=== PATIENT | female | born 1970 | race Caucasian/White ===

== ENCOUNTER 2017-07-23 18:43 | Emergency (ER) | payer SELFPAY ==
[2017-07-23] MEDS ORDERED: LABETALOL 20 MG/4ML SYRINGE IV ONE (18:51)
[2017-07-23] MEDS ORDERED: AMLODIPINE 5 MG TAB ONE (19:28)
[2017-07-23] MEDS ORDERED: LORazepam 2 MG/ML VIAL ONE (19:28)
[2017-07-23 19:33] LABS: Absolute Lymphocytes (CBC) 2.3 K/uL (0.7-4.9); Absolute Monocytes 0.7 K/uL (0.1-1.3); Absolute Neutrophil 6.1 K/uL (1.8-8.0); Basophils % 1.1 % (0-1.3); Hematocrit 36.9 % (36.0-45.0); Lymphocytes % 24.2 % (15.3-44.8); MCH 28.4 pg (27.0-35.0); MPV 8.5 fL (7.6-11.3); Monocytes % 7.4 % (3.3-12.3)
[2017-07-23 19:40] LABS: Protime INR 0.98
--- NOTE | 2017-07-23 19:41 | RAD REPORT ---
EXAM DESCRIPTION: CT - Head Brain Wo Cont - 07/23/2017 7:28 pm CLINICAL HISTORY: Hypertension, headache COMPARISON: None. TECHNIQUE: All CT scans are performed using dose optimization technique as appropriate and may inclu de automated exposure control or mA/KV adjustment according to patient size. FINDINGS: No intracranial hemorrhage, hydrocephalus or extra-axial fluid collection.No areas of brai n edema or evidence of midline shift. The paranasal sinuses and mastoids are clear. The calvarium is intact. IMPRESSION: No acute intracranial abnormality.
--- NOTE | 2017-07-23 19:42 | RAD REPORT ---
EXAM DESCRIPTION: RAD - Chest Single View - 07/23/2017 7:34 pm CLINICAL HISTORY: Hypertension, chest pain COMPARISON: None. FINDINGS: Portable technique limits examination quality. The lungs are grossly clear. The heart is normal in size. No displaced fractures. IMPRESSION: No acute intrathoracic process suspected.
[2017-07-23 19:50] LABS: Potassium 4.1 mEq/L (3.6-5.0)
[2017-07-23 19:56] LABS: Albumin 3.7 g/dL (3.2-5.5); Bilirubin Direct 0.1 mg/dL (0-0.2); Bilirubin Total 0.6 mg/dL (0.3-1.2); Magnesium 2.1 mg/dL (1.8-2.5); Protein, Total 7.5 g/dL (6.0-8.3)
[2017-07-23 19:57] LABS: CKMB Creatine Kinase MB 0.8 ng/ml (0.3-4.0)
[2017-07-23 20:07] LABS: Urine Blood TRACE (NEG); Urine Glucose NEGATIVE (NEG); Urine Protein NEGATIVE (NEG)
--- NOTE | 2017-07-23 20:49 | EDPHYS ---
Physician Documentation [facility] Name: Nayana Manning Age: 47 yrs Sex: Female : 1970 Arrival Date: 07/23/2017 Time: 18:35 Bed 18 Private MD: ED Physician Matt Dahl HPI: 07/23 19:23 This 47 yrs old Female presents to ER via EMS with complaints of Blood helene Pressure Problem. 19:23 high blood pressure and headache, at [facility]. Onset: The symptoms/episode helene began/occurred today. Severity of symptoms: At their worst the symptoms were mild in the emergency department the symptoms are unchanged. The patient has experienced similar episodes in the past, several times. 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 - Social history:: Smoking status: Patient/guardian denies using tobacco. ROS: 19:24 Constitutional: Negative for fever, chills, and weight loss, Eyes: Negative for injury, helene pain, redness, and discharge, ENT: Negative for injury, pain, and discharge, Neck: Negative for injury, pain, and swelling, Cardiovascular: Negative for chest pain, palpitations, and edema, Respiratory: Negative for shortness of breath, cough, wheezing, and pleuritic chest pain, Abdomen/GI: Negative for abdominal pain, nausea, vomiting, diarrhea, and constipation, Back: Negative for injury and pain, : Negative for injury, bleeding, discharge, and swelling, MS/Extremity: Negative for injury and deformity, Skin: Negative for injury, rash, and discoloration, Psych: Negative for depression, anxiety, suicide ideation, homicidal ideation, and hallucinations, Allergy/Immunology: Negative for hives, rash, and allergies, Endocrine: Negative for neck swelling, polydipsia, polyuria, polyphagia, and marked weight changes, Hematologic/Lymphatic: Negative for swollen nodes, abnormal bleeding, and unusual bruising. 19:24 Neuro: Positive for headache. Exam: 19:24 Constitutional: This is a well developed, well nourished patient who is awake, alert, helene and in no acute distress. Head/Face: Normocephalic, atraumatic. Eyes: Pupils equal round and reactive to light, extra-ocular motions intact. Lids and lashes normal. Conjunctiva and sclera are non-icteric and not injected. Cornea within normal limits. Periorbital areas with no swelling, redness, or edema. ENT: Nares patent. No nasal discharge, no septal abnormalities noted. Tympanic membranes are normal and external auditory canals are clear. Oropharynx with no redness, swelling, or masses, exudates, or evidence of obstruction, uvula midline. Mucous membranes moist. Neck: Trachea midline, no thyromegaly or masses palpated, and no cervical lymphadenopathy. Supple, full range of motion without nuchal rigidity, or vertebral point tenderness. No Meningismus. Chest/axilla: Normal chest wall appearance and motion. Nontender with no deformity. No lesions are appreciated. Cardiovascular: Regular rate and rhythm with a normal S1 and S2. No gallops, murmurs, or rubs. Normal PMI, no JVD. No pulse deficits. Respiratory: Lungs have equal breath sounds bilaterally, clear to auscultation and percussion. No rales, rhonchi or wheezes noted. No increased work of breathing, no retractions or nasal flaring. Abdomen/GI: Soft, non-tender, with normal bowel sounds. No distension or tympany. No guarding or rebound. No evidence of tenderness throughout. Back: No spinal tenderness. No costovertebral tenderness. Full range of motion. Female : Normal external genitalia. Skin: Warm, dry with normal turgor. Normal color with no rashes, no lesions, and no evidence of cellulitis. MS/ Extremity: Pulses equal, no cyanosis. Neurovascular intact. Full, normal range of motion. Neuro: Awake and alert, GCS 15, oriented to person, place, time, and situation. Cranial nerves II-XII grossly intact. Motor strength 5/5 in all extremities. Sensory grossly intact. Cerebellar exam normal. Normal gait. Psych: Awake, alert, with orientation to person, place and time. Behavior, mood, and affect are within normal limits. 19:24 Neck: ROM/movement: Meningeal signs: are not present, Kernig's sign is negative, Brudzinski's sign is negative. Vital Signs: 18:38 BP 195 / 100; Pulse 78; Resp 15; Temp 97.7(O); Pulse Ox 100% on R/A; Weight 72.57 kg; ch Height 5 ft. 6 in. (167.64 cm); Pain 4/10; 19:41 BP 169 / 102; Pulse 76; Resp 18; Pulse Ox 99% on R/A; ea 20:30 BP 136 / 92; Pulse 68; Resp 18; Pulse Ox 99% on R/A; ea 21:56 BP 122 / 69; Pulse 79; Resp 18; Temp 98; Pulse Ox 99% on R/A; ea 18:38 Body Mass Index 25.82 (72.57 kg, 167.64 cm) ch 18:38 at its worse pain is a 6 ch Procedures: 19:59 Peripheral line: by aseptic technique a peripheral line was placed in the right [facility] external jugular vein. MDM: 19:12 Patient medically screened. [facility] 19:25 Data reviewed: vital signs, nurses notes, lab test result(s), EKG, radiologic studies, [facility] CT scan, plain films. 07/23 18:51 Order name: Basic Metabolic Panel 07/23 18:51 Order name: BNP 07/23 18:51 Order name: CBC with Diff 07/23 18:51 Order name: Ckmb 07/23 18:51 Order name: CPK 07/23 18:51 Order name: LFT's; Complete Time: 20:44 07/23 18:51 Order name: Magnesium; Complete Time: 20:44 07/23 18:51 Order name: PT-INR; Complete Time: 20:44 07/23 18:51 Order name: Ptt, Activated; Complete Time: 20:44 07/23 18:51 Order name: Troponin (emerg Dept Use Only); Complete Time: 20:44 07/23 18:51 Order name: Lipase; Complete Time: 20:44 07/23 18:52 Order name: Basic Metabolic Panel; Complete Time: 20:44 EDMS 07/23 18:52 Order name: BNP B-Type Natriuretic Peptide; Complete Time: 20:44 EDMS 07/23 18:51 Order name: XRAY Chest (1 view); Complete Time: 20:44 07/23 18:51 Order name: EKG; Complete Time: 18:52 07/23 18:51 Order name: Cardiac monitoring; Complete Time: 21:05 07/23 18:51 Order name: EKG - Nurse/Tech; Complete Time: 21:05 07/23 18:51 Order name: CT Head Brain wo Cont; Complete Time: 20:44 iw 07/23 18:52 Order name: CBC with Automated Diff; Complete Time: 20:44 EDMS 07/23 18:52 Order name: CKMB Creatine Kinase MB; Complete Time: 20:44 EDMS 07/23 18:52 Order name: Creatine Phosphokinase; Complete Time: 20:44 EDMS 07/23 19:37 Order name: Urine Dipstick--Ancillary (enter results); Complete Time: 20:44 [facility] 07/23 19:37 Order name: Urine --Ancillary (enter results); Complete Time: 20:44 [facility] 07/23 18:51 Order name: IV Saline Lock; Complete Time: 21:05 07/23 18:51 Order name: Labs collected and sent; Complete Time: 21:05 07/23 18:51 Order name: O2 Per Protocol; Complete Time: 21:05 07/23 18:51 Order name: O2 Sat Monitoring; Complete Time: 21:05 07/23 18:51 Order name: Urine Dipstick-Ancillary (obtain specimen); Complete Time: 21:05 iw Administered Medications: 19:50 Drug: Labetalol 20 mg {Note: Left EJ.} Route: IVP; Infused Over: 2 mins; Site: Other; ea 21:11 Follow up: Response: No adverse reaction; Marked relief of symptoms; Blood pressure is ea lowered 19:50 Drug: Ativan 1 mg {Note: left EJ.} Route: IVP; Site: Other; ea 21:11 Follow up: Response: No adverse reaction ea 19:50 Drug: Norvasc 10 mg Route: PO; ea 21:10 Follow up: Response: No adverse reaction ea 20:55 Drug: Rocephin - (cefTRIAXone) 1 grams {Note: left EJ.} Route: IVPB; Infused Over: 30 ea mins; Site: Other; 21:52 Follow up: Response: No adverse reaction; IV Status: Completed infusion ea 21:05 Drug: Trandate 100 mg Route: PO; ea 21:11 Follow up: Response: No adverse reaction; Marked relief of symptoms; Blood pressure is ea lowered Disposition: 07/23/17 20:48 Discharged to Home. Impression: Essential (primary) hypertension, Urinary tract infection, site not specified. - Condition is Stable. - Discharge Instructions: Hypertension, Urinary Tract Infection, Urinary Tract Infection, [id number], Hypertension, Yqzf-[id number], How to Take Your Blood Pressure, [id number], Aspirin and Your Heart, Managing Your High Blood Pressure. - Prescriptions for Norvasc 5 mg Oral Tablet - take 1 tablet by ORAL route once daily; 20 tablet. Trandate 200 mg Oral Tablet - take 2 tablet by ORAL route every 12 hours; 20 tablet. Bactrim DS 800- 160 mg Oral Tablet - take 1 tablet by ORAL route every 12 hours for 7 days; 14 tablet. - Medication Reconciliation Form, Thank You Letter, Antibiotic Education, Prescription Opioid Use form. - Follow up: Private Physician; When: 2 - 3 days; Reason: Recheck today's complaints, Continuance of care, Re-evaluation by your physician. - Problem is new. - Symptoms have improved. Signatures: Dispatcher [employer] Morenita Valera, Matt Colin RN, ch, MD MD cha Williams, Irene RN Vannesa Biswas RN RN ea
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
[2017-07-23] MEDS ORDERED: LABETALOL HCL 100 MG TAB ONE (21:00)
[2017-07-23] MEDS ORDERED: CEFTRIAXONE/SWI 1gm 1 GM/10 ML SYR ONE (21:01)
--- NOTE | 2017-07-24 07:59 | EKG ---
Test Date: 2017-07-23 Test Time: 19:47:30 Cinema Or Theatre Manager: CRISTINO MEASUREMENT RESULTS: Intervals: Rate: 75 DE: 190 QRSD: 88 QT: 412 QTc: 460 [place]: P: 71 DE: 190 QRS: 66 T: 60 INTERPRETIVE STATEMENTS: Normal sinus rhythm Normal ECG No previous ECG available for comparison Electronically Signed On 07-24-17 07:58:26 CDT by Gwyn Crow
== END 2017-07-23 22:12 | disposition home or self-care (01) ==
LOC: ER 18:43
PROC: 05HP33Z Insertion of Infusion Device into Right External Jugular Vein, Percutaneous Approach (ICD-10-PCS; principal; 2017-07-23)
DX: N39.0 Urinary tract infection, site not specified (principal); I10 Essential (primary) hypertension
CPT/HCPCS: 36415; 70450; 71045; 80048; 80076; 81003; 81025; 82550; 82553; 83690; 83735; 83880; 84484; 85025; 85610; 85730; 93005; 96365; 96375; 99284; J0696